=== PATIENT | male | born 1990 | race Caucasian/White ===

== ENCOUNTER 2017-04-17 14:48 | Emergency (ER) | payer OTHER | END 2017-04-17 15:37 | disposition home or self-care (01) | LOC: FER 14:48 | DX: S60.452A Superficial foreign body of right middle finger, initial encounter (principal); Z23 Encounter for immunization; W45.8XXA Other foreign body or object entering through skin, initial encounter; Y92.009 Unspecified place in unspecified non-institutional (private) residence as the place of occurrence of the external cause | CPT/HCPCS: 90715; 99283 ==